=== PATIENT | female | born 1975 | race African-American/Black ===

== ENCOUNTER 2021-03-23 14:59 | Emergency (ER) | payer BC, MEDICAID ==
[~2021-03-23] VITALS: Ht 170.2 cm; Wt 68.0 kg
[2021-03-23 17:07] LABS: BASOPHILS % 0.9 % (0.0-2.0); EOSINOPHILS % 3.3 % (0.0-5.0); HEMOGLOBIN. 14.1 g/dL (12.0-16.0); LYMPHOCYTES % 33.7 % (20.0-50.0); MEAN CORPUSCULAR VOLUME 93.1 fL (81.0-99.0); MEAN PLATELET VOLUME 9.7 fl (7.4-10.4); MONOCYTES % 8.2 % (2.0-8.0); NEUTROPHILS % 53.9 % (40.0-76.0); PLATELET 270 x1000/uL (130-400); RED CELL DISTRIBUTION WIDTH 13.9 % (11.6-14.6)
[2021-03-23 17:15] LABS: CHLORIDE 107 mEq/L (98-107)
[2021-03-23] MEDS ORDERED: HALOPERIDOL 5MG TABLET PO ONE (21:00)
[2021-03-23] MEDS ORDERED: CARBAMAZEPINE 100MG TABLET CHEW PO ONE (21:00)
[2021-03-23] MEDS ORDERED: DIPHENHYDRAMINE 50MG CAPSULE PO ONE (21:00)
[2021-03-23] MEDS ORDERED: OLANZAPINE 10MG TABLET PO SCH (21:30)
[2021-03-24 09:13] VITALS: BP 119/90
== END 2021-03-23 18:35 | disposition home or self-care (01) ==
LOC: ER 14:59
DX: R07.89 Other chest pain (principal); Z88.8 Allergy status to other drugs, medicaments and biological substances; Z98.890 Other specified postprocedural states
CPT/HCPCS: 36415; 71045; 80053; 81025; 83880; 84484; 85025; 93005; 99285; Q0163; Z7610